=== PATIENT | male | born 1945 | race Caucasian/White ===

== ENCOUNTER → 2021-03-22 | Outpatient (CLI) | payer OTHER, BC | LOC: SJCVC 12:45 | PROVIDERS: ATTEND Internal Medicine Cardiovascular Disease | DX: R94.31 Abnormal electrocardiogram [ECG] [EKG] (principal); I44.0 Atrioventricular block, first degree; I45.2 Bifascicular block; I26.99 Other pulmonary embolism without acute cor pulmonale; I82.402 Acute embolism and thrombosis of unspecified deep veins of left lower extremity; I10 Essential (primary) hypertension; E78.5 Hyperlipidemia, unspecified; E11.42 Type 2 diabetes mellitus with diabetic polyneuropathy; G47.33 Obstructive sleep apnea (adult) (pediatric); Z95.0 Presence of cardiac pacemaker; Z79.84 Long term (current) use of oral hypoglycemic drugs; Z79.899 Other long term (current) drug therapy; Z88.8 Allergy status to other drugs, medicaments and biological substances; Z87.891 Personal history of nicotine dependence ==

== ENCOUNTER → 2021-04-29 | Outpatient (CLI) | payer OTHER, BC | END | disposition home or self-care (01) | LOC: SJCVCIMAG 07:26 | PROVIDERS: ATTEND Internal Medicine Cardiovascular Disease | DX: I08.1 Rheumatic disorders of both mitral and tricuspid valves (principal); I82.432 Acute embolism and thrombosis of left popliteal vein; I82.412 Acute embolism and thrombosis of left femoral vein; I10 Essential (primary) hypertension ==

== ENCOUNTER → 2021-05-03 | Outpatient (CLI) | payer OTHER, BC | LOC: SJCVC 13:35 | PROVIDERS: ATTEND Internal Medicine Cardiovascular Disease | DX: R94.31 Abnormal electrocardiogram [ECG] [EKG] (principal); I26.99 Other pulmonary embolism without acute cor pulmonale; I10 Essential (primary) hypertension; E78.5 Hyperlipidemia, unspecified; E11.9 Type 2 diabetes mellitus without complications; I82.402 Acute embolism and thrombosis of unspecified deep veins of left lower extremity; D68.59 Other primary thrombophilia; Z95.0 Presence of cardiac pacemaker; N40.0 Benign prostatic hyperplasia without lower urinary tract symptoms; M51.36 Other intervertebral disc degeneration, lumbar region; Z79.84 Long term (current) use of oral hypoglycemic drugs; Z79.899 Other long term (current) drug therapy; Z88.8 Allergy status to other drugs, medicaments and biological substances; Z91.048 Other nonmedicinal substance allergy status; I48.91 Unspecified atrial fibrillation ==

== ENCOUNTER → 2021-06-09 | Outpatient (CLI) | payer OTHER, BC | LOC: SJCVCIMAG 06:45 | PROVIDERS: ATTEND Internal Medicine Cardiovascular Disease | DX: I25.9 Chronic ischemic heart disease, unspecified (principal) ==

== ENCOUNTER → 2021-06-13 | Outpatient (CLI) | payer OTHER, BC ==
[~2021-06-13] VITALS: Ht 190.5 cm; Wt 130.6 kg
[~2021-06-13] MED LIST: ACETAMINOPHEN500 MG PO; ACTOS 30 MG TAB30 M1 PO; ALLOPURINOL 10100 M3 PO; ASA81BEC PO; ASPIRIN EC325 M1 PO; CLONAZEPAM 0.50.5 M1 PO; CRESTOR20 MG PO; DULCOLAX STOOL100 M1 PO; FISH OIL 1,001000 M3 PO; FLOMAX0.4 MG PO; HYDROCODON-ACE1 EAC7 PO; JANUVIA 50 MG T50 MG PO; LEVO-T100 MCG PO; LOSARTAN-HCTZ1 EAC3 PO; METFORMIN HCL500 M3 PO; MITIGARE0.6 MG PO; PREDNISOLONE 5 M5 MG PO; PROSCAR 5MG TABL5 M1 PO; PROTONIX40 M2 PO; VITAMIN B-1250 MC2 PO; VITAMIN D310 MC2 PO; XARELTO20 MG PO; ZETIA10 MG PO
[2021-06-13 08:24] LABS: HEMATOCRIT 36.4 % (42.0-52.0); HEMOGLOBIN 12.2 gm/dL (14.0-18.0); MCH 33.8 pg (26.0-34.0); MCHC 33.6 g/dL (28.0-37.0); MCV 100.8 fL (80.0-100.0); RBC 3.61 mil/uL (4.50-6.00); RDW 15.7 % (10.5-14.5); WBC 5.8 thou/uL (4.0-11.0)
[2021-06-13 08:36] LABS: CALCIUM 9.5 mg/dL (8.5-10.1); POTASSIUM 3.6 mmol/L (3.5-5.1)
--- NOTE | 2021-06-13 08:41 | EKG ---
[place] [address] [facility] [place] [address] ELECTROCARDIOGRAM REPORT Name: REID SHAFFER [id number]: 06/13/21 Attend Phys: Nnamdi Lara MD, Discharge: Date of : 45 Report #: [id number] [facility] Test Date: 2021-06-13 Test Time: 08:03:54 Pat Name: REID SHAFFER Department: Room: Gender: M Regulatory Intern: [facility] : 1945 Requested By: Nnamdi Lara Order Number: [id number] MD: Aaron Easley Measurements Intervals [place] Rate: 60 P: -51 MS: 297 QRS: -34 QRSD: 182 T: 101 QT: 471 QTc: 471 Interpretive Statements Atrial-ventricular dual-paced complexes No further analysis attempted due to paced rhythm No previous ECG available for comparison Electronically Signed On 06-13-2021 8:41:44 [employer] by Aaron Easley [email or web address] <ELECTRONICALLY SIGNED> By: Aaron Easley MD, [facility] 06/13/21 0841 2 2 Aaron Easley MD, [facility] /EPI
--- NOTE | 2021-06-14 15:40 | CATHLAB ---
[facility] [place] [place] [address] INVASIVE PROCEDURE REPORT Name: REID SHAFFER Room #: REG [facility]#: [id number] Admission: 06/13/21 Attend Phys: Nnamdi Lara MD, Discharge: Date of : 45 Report #: [id number] THIS REPORT FOR: cc: FAM - No family physician/PCP [facility] - Clinic physician unknown Nnamdi Lara MD [facility] ~ APPROVED REPORT Study performed: 06/13/2021 08:58:20 Patient Details Patient Status: Out-Patient Room #: The patient is a 76 year-old male Event Personnel Nnamdi Lara Permit Specialist, Kasandra Cavanaugh, Nichole Olmedo RTR, ANAMARIA HawleyubAftab Jessica RN criminal psychologist Performed Art Access - R femoral artery* Saurav Access - R femoral vein Right and Left Heart Cath w/or w/o Coronarie [id number] [facility] Aortogram Abdominal Peripheral Angio [id number] Hemostasis w/ Mynx Hemostasis with Manual pressure 13392 Initial Mod Sed Same Phys/QHP Gr5y [id number] 40816 Mod Sed Same Phys/QHP Ea 026200 Indication Chest pain Procedure Narrative The Right Groin 20ML^ was infiltrated with subcutaneous anesthesia. A Right Heart Catheterization was performed with a 7 Fr. [place] catheter and pressure were recorded. Cardiac outputs were obtained by the Thermal Dilution method. A PINNACLE 6FR Sheath #[id number] sheath was inserted into the RFA 6F^. Coronary angiography was performed using coronary diagnostic catheters. The right coronary system was accessed and visualized with a JR4 catheter. The left coronary system was accessed and visualized with a JL4 catheter. The left ventricle was accessed and visualized with a STR PIG catheter. Left ventriculogram was performed in 30 degree projection. An aortogram of the abdominal aorta was performed. Hemostasis was obtained with manual pressure following sheath removal without any complications. The patient tolerated the procedure well and there were no complications associated with the procedure. There was no hematoma. [facility] [place] [place] [address] [place] [address] INVASIVE PROCEDURE REPORT Name: REID SHAFFER Room #: [facility]#: [id number] Admission: 06/13/21 Attend Phys: Nnamdi Lara, Discharge: Date of : 45 Report #: [id number] Intraoperative Conscious Sedation Sedation start time: 919 Case end Time: 102 Fentanyl 75 mcg Versed 1 mg Fluoro Time: 2.45 minutes Dose: DAP 6788.20 cGycm2 712 mGy Contrast Type and Amount: Visipaque 50 ml Hemodynamics The right atrial mean pressure is 10 mmHg. The right ventricular pressure is 37/2 mmHg. The pulmonary artery pressure is 30/9 mmHg with a mean of 17 mmHg. The mean pulmonary capillary wedge pressure is 8 mmHg. The aortic pressure is 151/68 mmHg with a mean of 40 mmHg. The left ventricular pressure is 143/6 mmHg with a mean of mmHg. The left ventricular end diastolic pressure is 10 mmHg. The cardiac output using thermo method is 6.03 L/min. The cardiac index using thermo method is 2.35 L/min/m2. Conclusion #1 Successful right heart catheterization with cardiac output by thermodilution. See above hemodynamics. #2 normal left ventricular size and systolic function. EF 50% range. #3 abdominal aortogram shows mild aortic ectasia but no significant aneurysm or stenosis. #4 left main with mild disease giving rise to LAD and circumflex. #5 LAD with mild proximal calcification and mild disease there is a high-grade lesion at the distal apical segment no indication for intervention in that segment. Its a 1.0 vessel as it wraps the apex. 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 There is no indication for intervention into this vessel and in fact would be a high risk intervention. Recommendations and plan: Continue aggressive risk factor modification. We will add baby aspirin to the DOAC therapy. Continue other medications. Follow-up 3 months. <ELECTRONICALLY SIGNED> By: Nnamdi Lara MD, FACC 06/14/21 1540 1540 1540 Nnamdi Lara MD, FACC /INF
== END | disposition home or self-care (01) ==
LOC: CATH 07:33
PROVIDERS: ATTEND Internal Medicine Cardiovascular Disease
DX: R07.9 Chest pain, unspecified (principal); R94.39 Abnormal result of other cardiovascular function study; I25.10 Atherosclerotic heart disease of native coronary artery without angina pectoris; I77.811 Abdominal aortic ectasia; I10 Essential (primary) hypertension; E11.40 Type 2 diabetes mellitus with diabetic neuropathy, unspecified; E03.9 Hypothyroidism, unspecified; E78.5 Hyperlipidemia, unspecified; I42.9 Cardiomyopathy, unspecified; N40.0 Benign prostatic hyperplasia without lower urinary tract symptoms; E66.9 Obesity, unspecified; M1A.9XX1 Chronic gout, unspecified, with tophus (tophi); Z98.890 Other specified postprocedural states; Z79.899 Other long term (current) drug therapy; Z96.642 Presence of left artificial hip joint; Z96.652 Presence of left artificial knee joint; Z96.612 Presence of left artificial shoulder joint; Z87.891 Personal history of nicotine dependence; Z88.8 Allergy status to other drugs, medicaments and biological substances